=== PATIENT | female | born 1985 | race Caucasian/White ===

== ENCOUNTER 2024-08-18 07:00 | Day surgery (SDC) | payer OTHER ==
[2024-08-17 13:03] LABS: HEMATOCRIT 34.9 % (36.0-45.00); HEMOGLOBIN 11.9 g/dL (12.0-15.00); MEAN CELL VOLUME 94.1 fL (80.00-100.00); MEAN CORPUSCULAR HEMOGLOBIN 32.1 pg (27.00-32.0); MEAN CORPUSCULAR HGB CONC 34.1 g/dl (32.0-36.0); PLATELET COUNT 228 K/uL (150-450); RED BLOOD COUNT 3.71 M/uL (4.00-6.00); RED CELL DISTRIBUTION WIDTH 12.6 % (11.5-14.5)
[2024-08-17 13:42] LABS: PARTIAL THROMBOPLASTIN TIME 27.1 SECONDS (22.0-34.0); PROTHROMBIN TIME 10.9 SECONDS (9.0-11.5)
[2024-08-17 14:32] LABS: ALBUMIN 4.1 gm/dL (3.4-5.0); BILIRUBIN TOTAL 0.33 mg/dL (0.3-1.2); CALCIUM 9.4 mg/dL (8.5-10.1); CREATININE SERUM 0.55 mg/dL (0.55-1.02); GFR 123.7; GLOBULINA 3.3 G/DL (2.4-3.5); POTASSIUM 3.84 mEq/L (3.5-5.1); TOTAL PROTEIN 7.4 gm/dL (6.4-8.2)
[~2024-08-18 07:00] MED LIST: PRENATABS RX T1 EACH PO; SYNTHROID100 MCG PO
[2024-08-18] MEDS ORDERED: CEFOXITIN SODIUM 2,000 MG VIAL IV ONE ×2 (12:26→15:51)
[2024-08-18] MEDS ORDERED: POVIDONE-IODINE 118 ML BOTT TOP ONE (17:19)
[2024-08-18] MEDS ORDERED: MORPHINE SULFATE 4 MG/ML VIAL IV PRN (17:45)
[2024-08-18] MEDS ORDERED: PROMETHAZINE HCL 50 MG/ML AMPUL IM ONE (17:45)
== END 2024-08-18 21:00 | disposition home or self-care (01) ==
LOC: CIR.AMB 07:00
PROVIDERS: ATTEND Obstetrics & Gynecology Maternal & Fetal Medicine
DX: O02.1 Missed abortion (principal); E03.8 Other specified hypothyroidism

== ENCOUNTER 2024-11-29 06:22 | Day surgery (SDC) | payer OTHER ==
[2024-11-27 12:29] LABS: BASO % 0.8 % (0.1-1.2); EOS # 0.18 (0.04-0.54); EOS % 2.8 % (0.7-7.0); LYMPH # 1.76 (1.18-3.74); LYMPH % 27.1 % (19.3-53.1); MEAN PLATELET VOLUME 11.50 fl (9.4-12.4); MONO # 0.33 (0.24-0.82); MONO % 5.1 % (4.7-12.5); NEUT # 4.17 (1.56-6.13); NEUT % 64.0 % (34.0-71.1); RED CELL DISTRIBUTION WIDTH 11.9 % (11.6-14.4)
[2024-11-27 12:57] LABS: ALT/SGPT 18.0 U/L (12-78); AST/SGOT 14.0 U/L (15-37); BILIRUBIN TOTAL 0.32 mg/dL (0.3-1.2); BUN CREA RATIO 15.0 (7.0-25.0); CREATININE SERUM 0.46 mg/dL (0.55-1.02); GFR 151.23; GLOBULINA 3.1 G/DL (2.4-3.5); GLUCOSE FASTING 89.0 mg/dL (65-100); OSMOLALITY SERUM 279.0 MOSM/KG (275-295)
[2024-11-28 12:39] LABS: INR 0.95
[2024-11-29] MEDS ORDERED: POVIDONE-IODINE 118 ML BOTT TOP ONE (08:40)
[2024-11-29] MEDS ORDERED: MORPHINE SULFATE 4 MG/ML VIAL IV PRN (09:45)
[2024-11-29] MEDS ORDERED: PROMETHAZINE HCL 50 MG/ML AMPUL IM ONE (09:45)
[2024-11-29] MEDS ORDERED: MORPHINE SULFATE 4 MG/ML VIAL IV ONE (10:20)
== END 2024-11-29 11:30 | disposition home or self-care (01) ==
LOC: EDBD → CIR.AMB 06:22
PROVIDERS: ATTEND Obstetrics & Gynecology Maternal & Fetal Medicine
DX: O02.1 Missed abortion (principal)